=== PATIENT | female | born 1985 | race Caucasian/White ===

== ENCOUNTER 2020-06-04 12:39 | Emergency (ER) | payer MEDICAID ==
[~2020-06-04] VITALS: Ht 162.6 cm; Wt 63.6 kg
[~2020-06-04 12:39] MED LIST: CEFTIN500 MG PO
[2020-06-04 12:47] VITALS: Ht 162.6 cm; Wt 63.6 kg
[2020-06-04 13:33] LABS: CALC OSMOLALITY 272 mosm/kg (275-300); CALCIUM 8.7 mg/dL (8.5-10.1); CARBON DIOXIDE 23.8 mmol/L (21.0-32.0); CHLORIDE - SERUM 103 mmol/L (98-107); CREATININE - SERUM 0.5 mg/dL (0.6-1.3); POTASSIUM - SERUM 3.9 mmol/L (3.5-5.1); SODIUM 138 mmol/L (136-145); UREA NITROGEN 10 mg/dL (7-18); eGFR NON AFRICAN AMERICAN > 90 mL/min (90-120)
[2020-06-04 13:34] LABS: GLUCOSE 67 mg/dL (74-106)
[2020-06-04 13:39] LABS: ALBUMIN 3.4 g/dL (3.4-5.0); ALKALINE PHOSPHATASE 55 U/L (30-120); ALT (SGPT) 18 U/L (10-68); BILIRUBIN - TOTAL 0.45 mg/dL (0.2-1.3); PROTEIN - SERUM 7.3 g/dL (6.4-8.2)
[2020-06-04 13:45] LABS: BASOPHILS 0.1 % (0-2); EOSINOPHILS 0.5 % (0-7); HEMATOCRIT 32.4 % (36.0-48.0); HEMOGLOBIN 10.9 g/dL (12-16); IMMATURE GRANULOCYTES 0.3 % (0-5); LYMPHOCYTE ABS# 2.51 10x3/uL (1.18-3.74); LYMPHOCYTES 18.9 % (15-50); MCH 29.5 pg (26.0-34.0); MCHC 33.6 g/dL (31.0-37.0); MCV 87.6 fL (80.0-100.0); MEAN PLATELET VOLUME 8.9 fL (7.4-10.4); MONOCYTES 6.2 % (2-11); NEUTROPHIL ABS# 9.81 10x3/uL (1.56-6.13); RDW 12.7 % (11.5-14.5); WBC 13.3 10x3/uL (4.8-10.8)
[2020-06-04 13:58] LABS: PLATELET COUNT 238 10x3/uL (130-400)
[2020-06-04] MEDS ORDERED: OMNICEF300 MG PO (14:16)
[2020-06-04] MEDS ORDERED: FLUTICASONE PRO16 GM NASAL (14:16)
== END 2020-06-04 15:25 | disposition home or self-care (01) ==
LOC: D.ER 12:39
PROVIDERS: Family Medicine
DX: O26.892 Other specified pregnancy related conditions, second trimester (principal); J01.90 Acute sinusitis, unspecified; Z3A.18 18 weeks gestation of pregnancy; R05 Cough